=== PATIENT | male | born 1990 | race Caucasian/White ===

== ENCOUNTER 2020-11-19 13:03 | Emergency (ER) | payer BC, OTHER ==
[2020-11-19] MEDS ORDERED: Bacitracin/Neomycin/Polymyxin B Oint 0.9 GM U/D Packet ONE (13:32)
[2020-11-19] MEDS ORDERED: Bacitracin/Neomycin/Polymyxin B Oint 0.9 GM U/D Packet TOP ONE (13:33)
[2020-11-19] MEDS ORDERED: Diphtheria,Pertussis(Acell),Tetanus Vaccine 0.5 ML Syringe IM ONE (13:34)
--- NOTE | 2020-11-19 13:43 | EDM.PDOC ---
ED HPI GENERAL MEDICAL PROBLEM - General Chief Complaint: Laceration Stated Complaint: left ring finger laceration Time Seen by Provider: 11/19/20 13:12 Source of Information: Reports: Patient - History of Present Illness INITIAL COMMENTS - FREE TEXT/NARRATIVE: Bob is a 30 y/o male who was using a chain saw today when he somehow cut his left ring finger. No other injuries. He is unsure of last tetanus. left ring finger Pain Score (Numeric/FACES): 6 - Related Data Allergies Allergy/AdvReac Type Severity Reaction Status Date / Time No Known Allergies Allergy Verified 11/19/20 13:04 Home Meds: Home Meds buPROPion HCL [Wellbutrin Xl] 150 mg PO DAILY 11/19/20 [History] buPROPion HCL [Wellbutrin Xl] 300 mg PO DAILY 11/19/20 [History] ED ROS GENERAL - Review of Systems Review Of Systems: See Below Constitutional: Reports: No Symptoms HEENT: Reports: No Symptoms Respiratory: Reports: No Symptoms Cardiovascular: Reports: No Symptoms Endocrine: Reports: No Symptoms GI/Abdominal: Reports: No Symptoms : Reports: No Symptoms Musculoskeletal: Reports: Other (figner laceration/injury) Skin: Reports: No Symptoms Neurological: Reports: No Symptoms Psychiatric: Reports: No Symptoms Hematologic/Lymphatic: Reports: No Symptoms ED EXAM, SKIN/RASH Exam: See Below General Appearance: Alert, WD/WN, No Apparent Distress (Adult male) Ears: Hearing Grossly Normal Head: Atraumatic, Normocephalic Respiratory/Chest: No Respiratory Distress Cardiovascular: Regular Rate, Rhythm GI/Abdominal: Soft (Male) Exam: Deferred Rectal (Males) Exam: Deferred Extremities: Other (Note 2.5cm irregular laceration over the proximal PIP joint, ROM WNL, bleeding noted with exam) Neurological: Alert, Oriented, CN II-XII Intact, Normal Cognition Skin: Warm, Dry, Intact, Normal Color, Wound/Incision (left 4th finger laceration as described above) Course - Vital Signs Text/Narrative:: 1312 The patient was was seen by the [employer]. Xay obtained to exclude open fracture. Xray noted to WNL. The laceration was repaired. See Procedure Note. Procedure Note Laceration Repair Following verbal consent of the patient, risks, benefits, and alternatives were reviewed. The wound on the left ring finger was prepped with Betadine. Lidocaine 1% as used for local anesthesia to do digital block. Five interrupted sutures of 4-0 Vicryl was used for wound closure. Dressing was applied. Wound care instructions were reviewed. The patient tolerated the procedure well. Last Tetanus was unknown. Tdap was given today. EBL=minimal 1340 Written instructions were given and the patient left the ER in stable condition. - Orders/Labs/Meds Orders: Active Orders 24 hr Category Date Time Status Vaccine to be Administered/Admin Charge [RC] ASDIRECTED Care 11/19/20 13:35 Active Fingers Fourth Digit Lt F3 [CR] Stat Exams 11/19/20 13:05 Ordered Meds: Medications Discontinued Medications Generic Name Dose Route Start Last Admin Trade Name Freq PRN Reason Stop Dose Admin Diphtheria/Tetanus/Acell Pertussis 0.5 ml 11/19/20 13:34 Diphtheria,Pertussis(Acell),Tetanus Vaccine 0.5 Ml Syringe IM 11/19/20 13:35 .ONCE ONE Lidocaine HCl Confirm 11/19/20 13:20 Lidocaine 2% 10 Ml Mdv Administered 11/19/20 13:21 Dose 10 ml .ROUTE .STK-MED ONE Neomycin/Polymyxin/Bacitracin 1 each 11/19/20 13:33 Bacitracin/Neomycin/Polymyxin B Oint 0.9 Gm U/D Packet TOP 11/19/20 13:34 ONETIME ONE Neomycin/Polymyxin/Bacitracin Confirm 11/19/20 13:32 Bacitracin/Neomycin/Polymyxin B Oint 0.9 Gm U/D Packet Administered 11/19/20 13:33 Dose 1 each .ROUTE .STK-MED ONE - Radiology Interpretation Free Text/Narrative:: XR Left fingers-no acute fx noted Departure - Departure Time of Disposition: 13:37 Disposition: Home, Self-Care 01 Condition: Good Clinical Impression: Accidental injury due to hand tool, Need for Tdap vaccination Laceration of finger of left hand Qualifiers: Encounter type: initial encounter Finger: ring finger Damage to nail status: without damage Foreign body presence: without foreign body Qualified Code(s): S61.215A - Laceration without foreign body of left ring finger without damage to nail, initial encounter - Discharge Information *PRESCRIPTION DRUG MONITORING PROGRAM REVIEWED*: Not Applicable *COPY OF PRESCRIPTION DRUG MONITORING REPORT IN PATIENT CEDRICK: Not Applicable Instructions: Laceration Care, Adult, VIS, Tetanus, Diphtheria (Td); Tetanus, Diphtheria, Pertussis (Tdap) - [facility] Additional Instructions: -Ibuprofen 200mg 3 tablets oral every 6 hours as needed for pain -Acetaminophen 325mg 2-3 tablets oral every 4-6 hours as needed for pain -Keep dressing to wound dry and intact for 24 hours, then you may wash the wound daily with soap and water. Apply a light bandage over the wound to keep it clean and protected. You may use antibiotic ointment as needed. -Watch for signs of infection and seek care at the clinic or ER if needed -The sutures that were placed today will dissolve over the next 2-3 weeks, so you do not need to return to the clinic for removal. Allow them to dissolve and and do note attempt to pick or cut them out for at least 2 weeks. -Your Tetanus was not updated at today's visit. - My Orders Last 24 Hours: My Active Orders 11/19/20 13:05 Fingers Fourth Digit Lt F3 [CR] Stat 11/19/20 13:35 Vaccine to be Administered/Admin Charge [RC] ASDIRECTED - Assessment/Plan Last 24 Hours: My Active Orders 11/19/20 13:05 Fingers Fourth Digit Lt F3 [CR] Stat 11/19/20 13:35 Vaccine to be Administered/Admin Charge [RC] ASDIRECTED
== END 2020-11-19 13:50 | disposition home or self-care (01) ==
LOC: LL.ED 13:03
DX: S61.215A Laceration without foreign body of left ring finger without damage to nail, initial encounter (principal); Z23 Encounter for immunization; W29.3XXA Contact with powered garden and outdoor hand tools and machinery, initial encounter
CPT/HCPCS: 12001; 73140-F3; 90471; 90715; 99283; 99283-25

== ENCOUNTER 2023-09-09 16:15 | Emergency (ER) | payer BC ==
[2023-09-09] MEDS ORDERED: Sodium Chloride 0.9% 10 ML Syringe FLUSH PRN (16:38)
[2023-09-09 16:58] LABS: ALANINE AMINOTRANSFERASE,ALT 50 U/L (12-78); ALBUMIN 4.1 g/dL (3.4-5.0); ALKALINE PHOSPHATASE 76 IU/L (46-116); ANION GAP 7.6 meq/L (7-15); ASPARTATE AMNIOTRANSFERASE,AST 21 U/L (15-37); BILIRUBIN TOTAL 0.5 mg/dL (0.2-1.0); BLOOD UREA NITROGEN,BUN 10 mg/dL (7-18); CARBON DIOXIDE,CO2 31.4 mmol/L (21.0-32.0); CHLORIDE,CL 103 mmol/L (98-107); CREATININE 0.98 mg/dL (0.51-1.17); EST CRCL DRUG DOSING (CG) 128.15 mL/min; GLUCOSE RANDOM 111 mg/dL (70-99); MAGNESIUM 1.7 mg/dL (1.8-2.4); POTASSIUM,K 3.5 mmol/L (3.5-5.1); PROTEIN TOTAL,TP 7.9 g/dL (6.4-8.2); SODIUM,NA 142 mmol/L (136-145)
[2023-09-09 17:03] LABS: ESTIMATED GFR 106 mL/min (>=60)
[2023-09-09 17:20] LABS: BASOPHILS ABSOLUTE AUTO 0.02 K/uL (0.00-0.20); BASOPHILS PERCENT AUTO 0.3 % (0.0-2.0); EOSINOPHILS ABSOLUTE AUTO 0.22 K/uL (0.00-0.50); EOSINOPHILS PERCENT AUTO 2.8 % (0.0-5.0); HEMATOCRIT 45.8 % (39.0-49.0); HEMOGLOBIN 15.6 g/dL (13.1-16.8); LYMPHOCYTES ABSOLUTE AUTO 2.69 K/uL (0.50-3.50); LYMPHOCYTES PERCENT AUTO 33.6 % (10.0-50.0); MEAN CORPUSCULAR HGB CONC 34.1 g/dL (31.7-36.0); MEAN CORPUSCULAR VOLUME 85.1 fL (84.0-98.0); MONOCYTES ABSOLUTE AUTO 0.65 K/uL (0.00-1.00); MONOCYTES PERCENT AUTO 8.1 % (2.0-14.0); NEUTROPHILS ABSOLUTE AUTO 4.42 K/uL (1.40-7.00); NEUTROPHILS PERCENT AUTO 55.2 % (45.0-80.0); PLATELET COUNT,PLT 312 K/uL (150-350); RED BLOOD CELL COUNT 5.38 M/uL (4.33-5.41); RED CELL DISTRIBUTION WIDTH 12.9 % (11.2-14.1)
== END 2023-09-09 18:50 | disposition home or self-care (01) ==
LOC: LL.ED 16:15
DX: R07.89 Other chest pain (principal); F41.9 Anxiety disorder, unspecified; E66.9 Obesity, unspecified; Z68.39 Body mass index [BMI] 39.0-39.9, adult; Z79.899 Other long term (current) drug therapy
CPT/HCPCS: 36415; 71046; 80053; 83735; 84484; 85025; 85379; 93005; 99285